=== PATIENT | male | born 1940 | race Caucasian/White ===

== ENCOUNTER → 2017-10-29 09:46 | Outpatient (CLI) | payer MEDICARE, OTHER, SELFPAY ==
[2017-10-29 11:22] LABS: Alanine Aminotransferase 40 IU/L (21-72); Albumin 4.6 g/dL (3.5-5.0); Albumin Globulin Ratio 1.6 (1.0-2.8); Alkaline Phosphatase 66 U/L (38-126); Aspartate Aminotransferase 31 IU/L (17-59); BUN Creatinine Ratio 14.4 (6-22); Bilirubin Total 0.7 mg/dL (0.2-1.3); Blood Urea Nitrogen 13 mg/dL (9-20); Calcium 10.3 mg/dL (8.4-10.2); Carbon Dioxide 29 mmol/L (22-32); Chloride 100 mmol/L (98-107); Cholesterol 165 mg/dL (140-199); Estimated Glomerular Filt Rate > 60.0 mL/min (>60); Globulin 2.8 g/dL (1.7-4.1); Glucose 98 mg/dL (80-110); HDL Cholesterol 46 mg/dL (40-60); HEMOLYSIS < 15 (0-50); LDL Cholesterol Calculated 65 mg/dL (<100); Potassium 4.7 mmol/L (3.4-5.1); Sodium 141 mmol/L (137-145); Total Protein 7.4 g/dL (6.3-8.2); Triglycerides 272 mg/dL (35-150)
[2017-10-29 12:31] LABS: Creatinine Urine Random 201.9 mg/dL
[2017-10-29 12:36] LABS: Microalbumi Creatinin Ratio Ur 7.9 ug/mg CR (<30); Microalbumin Urine Random 1.6 mg/dL (0-1.6)
== END ==
PROVIDERS: PCP Physician Assistant; Visit Provider Physician Assistant
DX: E78.5 Hyperlipidemia, unspecified (principal); I10 Essential (primary) hypertension
CPT/HCPCS: 36415; 80053; 80061; 82043; 82570

== ENCOUNTER → 2018-05-23 12:37 | Outpatient (CLI) | payer MEDICARE, OTHER, SELFPAY ==
[2018-05-23 13:48] LABS: Blood Urea Nitrogen 14 mg/dL (9-20); Calcium 9.6 mg/dL (8.4-10.2); Carbon Dioxide 27 mmol/L (22-32); Chloride 101 mmol/L (98-107); Estimated Glomerular Filt Rate > 60.0 mL/min (>60); Glucose 90 mg/dL (80-110); HEMOLYSIS 18 (0-50); Potassium 4.3 mmol/L (3.4-5.1); Sodium 138 mmol/L (137-145)
== END ==
PROVIDERS: Family Provider Physician Assistant; PCP Physician Assistant; Visit Provider Physician Assistant
DX: I10 Essential (primary) hypertension (principal)
CPT/HCPCS: 36415; 80048

== ENCOUNTER → 2018-05-30 09:47 | Outpatient (CLI) | payer MEDICARE, OTHER, SELFPAY ==
--- NOTE | 2018-05-30 09:51 | DI.RAD.S_ITS ---
PROCEDURE: FL BARIUM SWALLOW INDICATIONS: Chest pain;suspect hiatal hernia COMPARISON: None. FINDINGS: Function: There is normal esophageal peristalsis. No elicited gastroesophageal reflux. Morphology: Air-contrast images demonstrate normal mucosal morphology. Single contrast views show no esophageal strictures, extrinsic mass effects, or diverticula. There is a small sliding hiatal hernia that was intermittently visualized at the esophagogastric junction and a slight amount of gastroesophageal reflux through this area was observed. Limited images of the stomach demonstrate otherwise normal appearance. IMPRESSION: Small sliding hiatal hernia, episodic very mild gastroesophageal reflux. No esophageal mass or stricture or esophageal mucosal irregularity is found. Dictated by: Gera Harris M.D. on 05/30/2018 at 12:07 Approved by: Gera Harris M.D. on 05/30/2018 at 12:08
== END ==
PROVIDERS: Family Provider Physician Assistant; PCP Physician Assistant; Visit Provider Physician Assistant
DX: R07.9 Chest pain, unspecified (principal); K44.9 Diaphragmatic hernia without obstruction or gangrene; K21.9 Gastro-esophageal reflux disease without esophagitis
CPT/HCPCS: 74220

== ENCOUNTER → 2018-06-11 08:13 | Outpatient (CLI) | payer MEDICARE, OTHER, SELFPAY ==
--- NOTE | 2018-06-11 08:14 | DI.NM.S_ITS ---
PROCEDURE: NM PINA PERF SPECT R&S PHARM Rest and pharmacological stress myocardial perfusion SPECT with gated imaging and ejection fraction RADIOPHARMACEUTICAL: 25.6 mCi Tc-99m tetrafosmin IV at rest and 27.2 mCi Tc-99m tetrafosmin IV at peak effect of pharmacological stress. [id number] was performed. INDICATIONS: Chest pain; HTN; Hyperlipidemia TECHNIQUE: Radiopharmaceutical was injected at peak stress test, and also at rest. SPECT images were obtained. SPECT myocardial perfusion images were displayed in short axis, horizontal long axis, and vertical long axis views. Gated images were reviewed using Blockboard software. COMPARISON: None. CARDIAC STRESS: Treadmill exercise was performed but study was switched to lexiscan after 4.6 METs achieved as target heart rate was not achieved. A pharmacologic stress test was performed under the supervision of an attending staff, using an infusion of lexiscan 0.4mg IV X1. Hemodynamic data: There is normal blood pressure and heart rate response to pharmacologic stress. Symptoms: The patient denied anginal chest pain. Aminophylline: none EKG: sinus rhythm with non-specific T wave changes. No diagnostic changes of ischemia; no ectopy. FINDINGS: Raw data: There is good myocardial uptake of radiotracer. No significant motion artifacts. Nphk-yx-ygmmq ratio is 0.33 (normal is less than 0.38 for tetrafosmin tracer). Left ventricle function: Gated images demonstrate normal left ventricular wall thickening. No segmental wall motion abnormalities. No transient ischemic dilation; TID is 0.67 (normal less than 1.3). Left ventricle resting end diastolic volume is 117 mL. Left ventricle stress ejection fraction is 72%; normal range is above 45%. Myocardial perfusion: There is mildly severe fixed inferior wall defect that mostly improves with prone imaging except at the basal inferior wall suggesting probably diaphragmatic attenuation but small prior subendocardial infarct can not be excluded. No ischemia present. IMPRESSION: Low risk, probably normal study (old small prior infarct can't be excluded). No ischemia. 1) Probably normal perfusion images. There is mildly severe fixed inferior wall defect that mostly improves with prone imaging except at the basal inferior wall suggesting probably diaphragmatic attenuation but small prior subendocardial infarct in the basal inferior wall can not be excluded. No ischemia present. 2) Normal left ventricular size, wall motion, and systolic function (post stress EF 72%). 3) No ECG evidence of ischemia. 4) No angina noted during the study. 5) Mildly reduced exercise tolerance (4.6 METs achieved). Only 76% of maximum predicted heart rate achieved and the study was switched to lexiscan. Dictated by: Barron Dean MD on 06/12/2018 at 13:06 Approved by: Barron Dean MD on 06/12/2018 at 13:12
--- NOTE | 2018-06-11 09:28 | PM.TREADMILL ---
Cardiac Stress Test Report Referral & Results Date Patient Seen: 06/11/18 Requesting provider: Angie Holman Indication: Chest Pain Rest ECG: Bradycardia, otherwise unremarkable Procedure Note: Patient was initially started as a regular Dread protocol treadmill. He was bradycardic at start and by about 2 min into exercise he be was becoming dyspneic and his heart rate while it had increased did not seem likely to reaches target heart rate. Therefore the Dread protocol exercise was abandoned and he was switched to a Lexiscan protocol. The patient was placed on the treadmill at 1 mile an hour with no elevation and was then injected with the Ofelia scan material. The Cardiolite was then immediately administered. The patient spent an additional 2-3 minutes on the treadmill before being returned to the [facility] in the supine position. The patient had a normal response to all infused materials. Impression: Given that this was switched to Lexiscan treadmill, no information regarding possible ischemia was obtained. Please see perfusion imaging report for those details Occasional PAC was identified Please note: Actual ECG tracings can be found in the PACS system.
--- NOTE | 2018-06-11 09:31 | P.PCN_ITS ---
Cardiac Stress Test Report Referral & Results Date Patient Seen: 06/11/18 Requesting provider: Angie Holman Indication: Chest Pain Rest ECG: Bradycardia, otherwise unremarkable Procedure Note: Patient was initially started as a regular Dread protocol treadmill. He was bradycardic at start and by about 2 min into exercise he be was becoming dyspneic and his heart rate while it had increased did not seem likely to reaches target heart rate. Therefore the Dread protocol exercise was abandoned and he was switched to a Lexiscan protocol. The patient was placed on the treadmill at 1 mile an hour with no elevation and was then injected with the Ofelia scan material. The Cardiolite was then immediately administered. The patient spent an additional 2-3 minutes on the treadmill before being returned to the [facility] in the supine position. The patient had a normal response to all infused materials. Impression: Given that this was switched to Lexiscan treadmill, no information regarding possible ischemia was obtained. Please see perfusion imaging report for those details Occasional PAC was identified Please note: Actual ECG tracings can be found in the PACS system.
== END ==
PROVIDERS: Family Provider Physician Assistant; PCP Physician Assistant; Visit Provider Physician Assistant
DX: R07.9 Chest pain, unspecified (principal); I10 Essential (primary) hypertension; E78.5 Hyperlipidemia, unspecified; I49.1 Atrial premature depolarization
CPT/HCPCS: 78452; 93016; 93017; 93018; A9502; J2785

== ENCOUNTER → 2018-09-16 10:36 | Outpatient (CLI) | payer MEDICARE, OTHER, SELFPAY ==
[2018-09-16 12:48] LABS: BUN Creatinine Ratio 16.7 (6-22); Blood Urea Nitrogen 15 mg/dL (9-20); Calcium 10.2 mg/dL (8.4-10.2); Carbon Dioxide 28 mmol/L (22-32); Chloride 99 mmol/L (98-107); Estimated Glomerular Filt Rate > 60.0 mL/min (>60); Glucose 103 mg/dL (80-110); HEMOLYSIS < 15 (0-50); Magnesium 2.3 mg/dL (1.6-2.3); Potassium 4.8 mmol/L (3.4-5.1); Sodium 139 mmol/L (137-145)
[2018-09-16 13:17] LABS: Thyroid Stimulating Hormone 4.54 uIU/mL (0.47-4.68)
== END ==
PROVIDERS: Family Provider Physician Assistant; PCP Physician Assistant; Visit Provider Internal Medicine Cardiovascular Disease
DX: R00.2 Palpitations (principal); I10 Essential (primary) hypertension; I20.9 Angina pectoris, unspecified
CPT/HCPCS: 36415; 80048; 83735; 84443

== ENCOUNTER → 2018-10-04 13:32 | Outpatient (CLI) | payer MEDICARE, OTHER, SELFPAY ==
--- NOTE | 2018-10-04 | DI.ECHO.S_ITS ---
[facility]---------+ [facility] +---------+ : : [address] : : : : [id number] : : : : Phone: [phone]---------+ Echocardiogram Report + + :Name: SOTERO ANDINO Study Date: 10/04/2018 Height: 71 in : :[facility] Weight: 218 lb : : Gender: Male BSA: 2.2 m2 : :: 1940 Age: 78 yrs BP: 138/78 mmHg: :Reason For Study: Angina : :Ordering Physician: Pelra : :Dru Performed By: Janeth Nguyen : :Referring: SHELL Holman : + + Interpretation Summary The left ventricle is normal in size. There is mild asymmetric left ventricular hypertrophy. There is no echo evidence for significant left ventricular outflow tract obstruction. The ejection fraction is estimated to be 60-65%. No systolic anterior motion of the mitral valve. The right ventricle is mildly dilated. The right ventricular systolic function is normal. There is mild to moderate mitral regurgitation. The aortic root is mildly dilated. The ascending aorta is mildly enlarged. The IVC is of normal diameter and collapses greater than 50% with a sniff. This suggests a low right atrial pressure of 3 mm Hg. Procedure: A two-dimensional transthoracic echocardiogram with color flow and Doppler was performed. The study quality was technically adequate. There is no prior echocardiogram noted for this patient. The patient was in sinus bradycardia with heart rates between 46-58 bpm during the exam. Left Ventricle: The left ventricle is normal in size. There is mild asymmetric left ventricular hypertrophy. There is no echo evidence for significant left ventricular outflow tract obstruction. There is no thrombus. A false chord is noted (normal variant). The ejection fraction is estimated to be 60-65%. There are no focal wall motion abnormalities. Diastolic parameters suggest a relaxation abnormality of the left ventricle, consistent with probable normal filling pressures. Right Ventricle: The right ventricle is mildly dilated. The right ventricular systolic function is normal. Atria: The left atrium is mildly dilated. Right atrial size is normal. The interatrial septum is intact with no evidence for an atrial septal defect. Mitral Valve: The mitral valve is grossly normal. No systolic anterior motion of the mitral valve. There is mild to moderate mitral regurgitation. Aortic Valve: The aortic valve is trileaflet. The aortic valve opens well. There is no aortic valve stenosis. There is trace aortic regurgitation. Tricuspid Valve: The tricuspid valve is not well visualized, but is grossly normal. There is trace tricuspid regurgitation. Pulmonary artery pressures cannot be estimated because of the lack of a measurable TR jet velocity. Pulmonic Valve: The pulmonic valve is not well visualized. There is trace pulmonic regurgitation. Great Vessels: The aortic root is mildly dilated. The ascending aorta is mildly enlarged. The aortic arch is normal in size. The IVC is of normal diameter and collapses greater than 50% with a sniff. This suggests a low right atrial pressure of 3 mm Hg. Pericardium/ Pleura There is no pericardial effusion. There is no pleural effusion. MMode/2D Measurements & Calculations LVIDd: 5.0 cm Ao root diam: 4.1 cm LVIDs: 2.6 cm Aortic Jxn: 3.2 cm FS: 47.8 % asc Aorta Diam: 3.9 cm EPSS: 0.93 cm Ao Arch Diam (Prox Trans): 2.7 cm IVSd: 1.2 cm LVPWd: 0.88 cm LV matthews. diameter/BSA (cm/m^2): 2.3 LV sys. diameter/BSA (cm/m^2): 1.2 LA dimension: 4.1 cm RA area: 19.9 cm2 LA A2 area: 23.0 cm2 RVDd major: 5.6 cm LA A4 area: 20.9 cm2 LA length (vol): 5.0 cm LA vol: 81.1 ml LA vol index: 37.1 ml/m2 RVD1 (basal): 2.9 cm RVD2 (mid): 2.8 cm Doppler Measurements & Calculations Ao V2 max: 116.5 cm/sec MV E max jose m: 54.4 cm/sec Ao V2 mean: 81.5 cm/sec MV A max jose m: 63.6 cm/sec Ao max P.4 mmHg MV E/A: 0.85 Ao mean P.0 mmHg Med Peak E' Jose M: 4.3 cm/sec Ao V2 VTI: 28.5 cm E/E' med: 12.6 Lat Peak E' Jose M: 6.4 cm/sec E/E' lat: 8.5 E/e' average: 10.5 MV dec time: 0.28 sec MV P1/2t: 83.5 msec MR ERO: 0.07 cm2 PA V2 max: 78.5 cm/sec MV P1/2t max jose m: 54.7 cm/sec PA V2 mean: 47.2 cm/sec MVA(P1/2t): 2.6 cm2 PA mean P.1 mmHg PA Accel Time: 0.16 sec MR flow rate: 37.0 cm3/sec MR PISA radius: 0.39 cm Reading Physician:AMBER
== END ==
PROVIDERS: Family Provider Physician Assistant; PCP Physician Assistant; Visit Provider Internal Medicine Cardiovascular Disease
DX: I34.0 Nonrheumatic mitral (valve) insufficiency (principal); I20.9 Angina pectoris, unspecified; I77.89 Other specified disorders of arteries and arterioles
CPT/HCPCS: 93306

== ENCOUNTER → 2019-06-12 15:39 | Outpatient (CLI) | payer MEDICARE, OTHER, SELFPAY ==
--- NOTE | 2019-06-12 15:41 | DI.RAD.S_ITS ---
PROCEDURE: XR CHEST 2V INDICATIONS: Chest pain TECHNIQUE: 2 views of the chest were acquired. COMPARISON: None. FINDINGS: Surgical changes and devices: None. Lungs and pleura: Scattered subsegmental atelectasis and/or scarring. No focal consolidation. . No pleural effusions or pneumothorax. Mediastinum: Mediastinal contours are normal. Heart size is normal. Bones and chest wall: No suspicious bony abnormalities. Soft tissues appear unremarkable. IMPRESSION: Scattered subsegmental atelectasis and/or scarring. No acute consolidation. Dictated by: Maximino Gomez M.D. on 06/12/2019 at 16:07 Approved by: Maximino Gomez M.D. on 06/12/2019 at 16:08
== END ==
PROVIDERS: Family Provider Physician Assistant; PCP Physician Assistant; Referring Provider Student in an Organized Health Care Education/Training Program; Visit Provider Student in an Organized Health Care Education/Training Program
DX: R07.89 Other chest pain (principal); R06.02 Shortness of breath
CPT/HCPCS: 71046

== ENCOUNTER → 2020-01-06 10:30 | Outpatient (CLI) | payer MEDICARE, OTHER, SELFPAY ==
[2020-01-06 11:12] LABS: Alanine Aminotransferase 45 IU/L (<50); Albumin 4.7 g/dL (3.5-5.0); Albumin Globulin Ratio 1.5 (1.0-2.8); Alkaline Phosphatase 69 U/L (38-126); Aspartate Aminotransferase 57 IU/L (17-59); BUN Creatinine Ratio 11.5 (6-22); Bilirubin Total 0.8 mg/dL (0.2-1.3); Blood Urea Nitrogen 11 mg/dL (9-20); Calcium 9.9 mg/dL (8.4-10.2); Carbon Dioxide 26 mmol/L (22-32); Chloride 103 mmol/L (98-107); Estimated Glomerular Filt Rate > 60.0 mL/min (>60); Globulin 3.1 g/dL (1.7-4.1); Glucose 98 mg/dL (80-110); Potassium 4.7 mmol/L (3.4-5.1); Sodium 138 mmol/L (137-145); Total Protein 7.8 g/dL (6.3-8.2)
[2020-01-06 11:46] LABS: Thyroid Stimulating Hormone 3.91 uIU/mL (0.47-4.68)
[2020-01-06 13:36] LABS: HEMOLYSIS 25 (0-50); Magnesium 2.2 mg/dL (1.6-2.3)
[2020-01-06 15:47] LABS: Add Manual Diff / Slide Review NO; Basophils Absolute Auto 0 /uL (0-100); Basophils Percent Auto 0.6 % (0-2); Eosinophils Absolute Auto 100 /uL (0-450); Eosinophils Percent Auto 1.9 % (2-4); Hematocrit 48.7 % (41-53); Hemoglobin 16.3 g/dL (13.5-17.5); Lymphocytes Absolute Auto 1500 /uL (1100-4500); Lymphocytes Percent Auto 25.3 % (25-40); Mean Corpuscular HGB Conc 33.5 % (30-36); Mean Corpuscular Hemoglobin 32.3 PG (26-34); Mean Corpuscular Volume 96.2 fL (80-100); Monocytes Absolute Auto 900 /uL (0-900); Monocytes Percent Auto 14.9 % (3-14); Neutrophils Absolute Auto 3400 /uL (1500-7000); Neutrophils Percent Auto 57.3 % (50-75); Platelet Count 219 X10^3/uL (150-400); Red Blood Cell Count 5.07 X10^6/uL (4.5-5.9); Red Cell Distribution Width 13.4 % (11.6-14.8); White Blood Cell Count 5.9 X10^3/uL (4.5-11.0)
== END ==
PROVIDERS: Family Provider Physician Assistant; PCP Family Medicine; Referring Provider Internal Medicine Cardiovascular Disease; Visit Provider Internal Medicine Cardiovascular Disease
DX: I48.91 Unspecified atrial fibrillation (principal); I10 Essential (primary) hypertension
CPT/HCPCS: 36415; 80053; 83735; 84443; 85025

== ENCOUNTER → 2020-01-20 15:27 | Outpatient (CLI) | payer MEDICARE, OTHER, SELFPAY ==
[2020-01-20 16:27] LABS: COVID19 -Nasal RAPID Negative (Negative)
== END ==
PROVIDERS: Family Provider Physician Assistant; PCP Family Medicine; Visit Provider Physician Assistant
DX: Z11.59 Encounter for screening for other viral diseases (principal)
CPT/HCPCS: 87635

== ENCOUNTER → 2020-01-26 08:19 | Outpatient (CLI) | payer MEDICARE, OTHER, SELFPAY ==
--- NOTE | 2020-01-26 | DI.ECHO.S_ITS ---
[facility]---------+ [facility] +---------+ : : [address] : [address] : : : : [id number] : : : : Phone: [phone] +---------+ Echocardiogram Report + + :Name: SOTERO ANDINO Study Date: 01/26/2020 Height: 72 in : :[facility] Weight: 205 lb : : Gender: Male BSA: 2.2 m2 : :: 1940 Age: 79 yrs BP: 117/84 mmHg: :Reason For Study: ATRIAL FIBRILLATION : :Ordering Physician: PAUL, : :FAVIOLA Performed By: Carina Peng : :Referring: FAVIOLA MILLER : + + Interpretation Summary The left ventricle is normal in size. The ejection fraction is estimated to be 50-55%. Compared to the prior exam, the left ventricular function is reduced. Patient is in atrial flutter with controlled ventricular rate. Atrial flutter appears to be new. The right ventricle is normal in size and function. There is mild to moderate mitral regurgitation. Compared to the prior echo study, there has been an increase in the severity of mitral regurgitation. Procedure: A two-dimensional transthoracic echocardiogram with color flow and Doppler was performed. The study quality was technically adequate. Comparison is made with the echocardiogram of 10/04/2018. The patient was in atrial flutter during the exam. With controlled ventricular rate. Left Ventricle: The left ventricle is normal in size. There is mild concentric left ventricular hypertrophy. There is no thrombus. A false chord is noted (normal variant). The ejection fraction is estimated to be 50-55%. Compared to the prior exam, the left ventricular function is reduced. There are no focal wall motion abnormalities. Diastolic parameters suggest probable normal left ventricular diastolic function and normal filling pressures. Right Ventricle: The right ventricle is normal in size and function. Atria: The left atrium is mildly dilated. There has been no significant change since the previous study. Right atrial size is normal. There is no Doppler evidence for an interatrial shunt. Mitral Valve: There is mild mitral annular calcification. There is mild to moderate mitral regurgitation. Compared to the prior echo study, there has been an increase in the severity of mitral regurgitation. Aortic Valve: The aortic valve is trileaflet. The aortic valve opens well. The aortic valve is slightly calcified. There is no aortic valve stenosis. There is trace aortic regurgitation. Tricuspid Valve: The tricuspid valve is normal in structure and function. Pulmonary artery pressures cannot be estimated because of the lack of a measurable TR jet velocity but the IVC suggests a CVP of around 3 mmHg. There is trace tricuspid regurgitation. Pulmonic Valve: The pulmonic valve leaflets are thin and pliable; valve motion is normal. There is mild pulmonic regurgitation. Great Vessels: The aortic root is normal size. The ascending aorta is at the upper limits of normal in size. The IVC is of normal diameter and collapses greater than 50% with a sniff. This suggests a low right atrial pressure of 3 mm Hg. Pericardium/ Pleura There is no pericardial effusion. There is no pleural effusion. MMode/2D Measurements & Calculations LVIDd: 4.1 cm LVOT diam: 2.3 cm LVIDs: 2.6 cm Ao root diam: 3.9 cm FS: 37.0 % asc Aorta Diam: 3.8 cm IVSd: 1.0 cm Ao Arch Diam (Prox Trans): 2.4 cm LVPWd: 1.2 cm LV matthews. diameter/BSA (cm/m^2): 1.9 LV sys. diameter/BSA (cm/m^2): 1.2 LA A2 area: 23.5 cm2 RA long axis: 5.0 cm LA A4 area: 13.8 cm2 RA area: 16.8 cm2 LA length (vol): 4.5 cm RA vol: 48.0 ml LA vol: 61.8 ml RA : 22.3 ml/m2 LA vol index: 28.7 ml/m2 IVC diam: 0.70 cm RVD1 (basal): 3.6 cm TAPSE: 1.9 cm Doppler Measurements & Calculations Ao V2 max: 77.0 cm/sec LVOT Max Jose M: 66.0 cm/sec Ao V2 mean: 58.8 cm/sec LV V1 max P.7 mmHg Ao max P.4 mmHg LV V1 VTI: 13.0 cm Ao mean P.5 mmHg PETE(I,D): 3.8 cm2 Ao V2 VTI: 13.9 cm PETE(V,D): 3.5 cm2 sev ratio: 0.94 PETE indexed to BSA (cm^2/m^2): 1.8 MV E max jose m: 71.4 cm/sec PA V2 max: 51.5 cm/sec MV A max jose m: 39.4 cm/sec PA V2 mean: 36.0 cm/sec MV E/A: 1.8 PA mean P.58 mmHg Med Peak E' Jose M: 11.9 cm/sec PA pr(Accel): 32.8 mmHg E/E' med: 6.0 Lat Peak E' Jose M: 13.4 cm/sec E/E' lat: 5.3 E/e' average: 5.7 MV dec time: 0.12 sec SV(LVOT): 53.3 ml Reading Physician:03:49 PM
== END ==
PROVIDERS: Family Provider Physician Assistant; PCP Family Medicine; Referring Provider Internal Medicine Cardiovascular Disease; Visit Provider Internal Medicine Cardiovascular Disease
DX: I34.0 Nonrheumatic mitral (valve) insufficiency (principal); I37.1 Nonrheumatic pulmonary valve insufficiency; I48.91 Unspecified atrial fibrillation
CPT/HCPCS: 93306

== ENCOUNTER → 2020-02-10 14:09 | Outpatient (CLI) | payer MEDICARE, OTHER, SELFPAY ==
[2020-02-11 20:03] LABS: COVID19 Sendout Not Detected (Not Detect)
== END ==
PROVIDERS: Family Provider Physician Assistant; PCP Family Medicine; Visit Provider Physician Assistant
DX: Z11.59 Encounter for screening for other viral diseases (principal)
CPT/HCPCS: 87635

== ENCOUNTER → 2021-02-04 13:31 | Outpatient (CLI) | payer MEDICARE, OTHER, SELFPAY ==
[2021-02-04 14:40] LABS: Alanine Aminotransferase 22 IU/L (<50); Albumin 4.5 g/dL (3.5-5.0); Albumin Globulin Ratio 1.7 (1.0-2.8); Alkaline Phosphatase 49 U/L (38-126); Aspartate Aminotransferase 25 IU/L (17-59); BUN Creatinine Ratio 12.8 (6-22); Bilirubin Total 0.6 mg/dL (0.2-1.3); Blood Urea Nitrogen 12 mg/dL (9-20); Carbon Dioxide 31 mmol/L (22-32); Chloride 102 mmol/L (98-107); Estimated Glomerular Filt Rate > 60.0 mL/min (>60); Globulin 2.6 g/dL (1.7-4.1); Glucose 89 mg/dL (80-110); HEMOLYSIS < 15 (0-50); Potassium 4.6 mmol/L (3.4-5.1); Sodium 139 mmol/L (137-145); Total Protein 7.1 g/dL (6.3-8.2)
== END ==
PROVIDERS: Family Provider Physician Assistant; PCP Family Medicine; Referring Provider Family Medicine; Visit Provider Family Medicine
DX: Z12.5 Encounter for screening for malignant neoplasm of prostate (principal); E78.5 Hyperlipidemia, unspecified; I10 Essential (primary) hypertension
CPT/HCPCS: 36415; 80053; G0103